=== PATIENT | female | born 1960 | race African-American/Black ===

== ENCOUNTER 2017-07-16 00:50 | Inpatient (IN) | payer MEDICAID ==
[~2017-07-16] VITALS: Ht 160 cm; Wt 64.5 kg
[2017-07-16 01:27] LABS: Basophils # (auto) 0 uL; Basophils % (auto) 1.4 % (0.0-2.0); Eosinophils # (auto) 0.2 uL; Hematocrit 38.7 % (36.0-46.0); Hemoglobin 12.6 g/dL (12.2-16.2); Lymphocytes # (auto) 1.7 uL; Lymphocytes % (auto) 51.3 % (10.0-50.0); Mean Corpuscular Hemoglobin 27.3 pg (28.0-32.0); Mean Corpuscular Hgb Conc. 32.4 g/dL (32.0-36.0); Mean Corpuscular Volume 84.3 fL (80.0-100.0); Mean Platelet Volume 8.4 fL (6.9-10.8); Monocytes # (auto) 0.3 uL; Monocytes % (auto) 9.7 % (0.0-12.0); Neutrophils # (auto) 1.1 uL; Neutrophils % (auto) 32.6 % (37.0-80.0); Nucleated Red Blood Cells % 0.1 %; Platelet Count (auto) 188 10^3/uL (140-450); Red Cell Distribution Width 13.9 % (11.8-14.3); White Blood Cell 3.3 10^3/uL (4.4-10.8)
[2017-07-16 01:40] LABS: INR 1.01 (0.9-1.15); Partial Thromboplastin Time 28.2 sec (22.64-33.71)
[2017-07-16 01:42] LABS: Albumin 3.6 g/dL (3.4-5.0); Anion Gap 8 (5-15); Aspartate Aminotransferase 21 U/L (15-37); BUN/Creatinine Ratio 14.9; Blood Urea Nitrogen 13 mg/dL (7-18); Calcium 9.5 mg/dL (8.5-10.1); Carbon Dioxide 28 mmol/L (21-32); Chloride 105 mmol/L (98-107); GFR African American 86 mL/min; GFR Non-African American 71 mL/min; Glucose 93 mg/dL (74-106); Magnesium 2.3 mg/dL (1.6-2.6); Potassium 3.6 mmol/L (3.5-5.1); Sodium 141 mmol/L (136-145)
[2017-07-16 01:47] LABS: Alkaline Phosphatase 91 U/L (45-117); Bilirubin, Total 0.2 mg/dL (0.2-1.0); Total Protein 7.3 g/dL (6.4-8.2)
[2017-07-16] MEDS ORDERED: ACETAMINOPHEN 325 MG TAB PO PRN (06:30)
[2017-07-16] MEDS ORDERED: ONDANSETRON HCL 4 MG/2 ML VIAL IV PRN (06:30)
[2017-07-16] MEDS ORDERED: TEMAZEPAM 15 MG CAP PO PRN (06:30)
[2017-07-16] MEDS ORDERED: HYDROmorphone HCL 2 MG/ML VL IV PRN (06:30)
[2017-07-16] MEDS ORDERED: NITROGLYCERIN 0.4 MG SL TAB SL PRN (06:30)
[2017-07-16] MEDS: ENOXAPARIN SOD 40 MG/0.4 ML SYRINGE SC SCH (09:32)
[2017-07-16] MEDS: FAMOTIDINE 20 MG TAB PO SCH ×2 (09:33→22:11)
[2017-07-16] MEDS ORDERED: ASPirin 81 mg TAB PO SCH (10:00)
[2017-07-16 12:17] LABS: Cholesterol 179 mg/dL (< 200); HDL Cholesterol 88 mg/dL (40-59); LDL Cholesterol 90 mg/dL (< 100); Triglycerides 89 mg/dL (< 150)
[2017-07-16 14:41] VITALS: BP 107/71
[2017-07-16] MEDS ORDERED: LEVO25TA6 PO (14:57)
[2017-07-16 20:00] VITALS: BP 101/59
[2017-07-16 22:00] VITALS: BP 101/59
[2017-07-16] MEDS ORDERED: ATORVASTATIN 20 MG TAB PO SCH (22:00)
[2017-07-17 05:06] LABS: Thyroxine (T4) 6.7 ug/dL (4.5-12.0)
[2017-07-17 05:18] VITALS: BP 96/49
[2017-07-17 05:40] LABS: Basophils # (auto) 0 uL; Basophils % (auto) 1.6 % (0.0-2.0); Eosinophils # (auto) 0.2 uL; Eosinophils % (auto) 6.1 % (0.0-7.0); Hematocrit 36.3 % (36.0-46.0); Hemoglobin 11.8 g/dL (12.2-16.2); Lymphocytes # (auto) 1.4 uL; Lymphocytes % (auto) 53.7 % (10.0-50.0); Mean Corpuscular Hemoglobin 27.3 pg (28.0-32.0); Mean Corpuscular Hgb Conc. 32.4 g/dL (32.0-36.0); Mean Corpuscular Volume 84.3 fL (80.0-100.0); Mean Platelet Volume 8.9 fL (6.9-10.8); Monocytes # (auto) 0.3 uL; Monocytes % (auto) 10.5 % (0.0-12.0); Neutrophils # (auto) 0.8 uL; Neutrophils % (auto) 28.1 % (37.0-80.0); Nucleated Red Blood Cells % 0.1 %; Platelet Count (auto) 172 10^3/uL (140-450); White Blood Cell 2.7 10^3/uL (4.4-10.8)
[2017-07-17 06:08] LABS: Albumin 3.3 g/dL (3.4-5.0); Calcium 9.2 mg/dL (8.5-10.1)
[2017-07-17 06:11] LABS: BUN/Creatinine Ratio 12.8
[2017-07-17 06:13] LABS: Bilirubin, Total 0.3 mg/dL (0.2-1.0); Total Protein 6.8 g/dL (6.4-8.2)
[2017-07-17] MEDS ORDERED: LEVOTHYROXINE SODIUM 50 MCG TAB PO SCH (06:45)
[2017-07-17 08:50] VITALS: BP 113/76
[2017-07-17] MEDS ORDERED: ADENOSINE 54 MG in GIVE UN-DILUTED 0 ML IV ONE (09:30)
[2017-07-17 09:36] VITALS: BP 138/92
[2017-07-17] MEDS ORDERED: ASPirin 81 mg TAB PO SCH (10:00)
[2017-07-17] MEDS: ENOXAPARIN SOD 40 MG/0.4 ML SYRINGE SC SCH (10:48)
[2017-07-17] MEDS: FAMOTIDINE 20 MG TAB PO SCH (10:48)
[2017-07-17 13:18] VITALS: BP 115/77
[2017-07-17 16:14] VITALS: BP 115/77
== END 2017-07-17 16:40 | disposition home or self-care (01) | DRG 203 ==
LOC: ER 00:52 → TELE 00:53 → TELE-CENTR 15:16
PROVIDERS: ADMIT Nurse Practitioner; ATTEND Internal Medicine
DX: R07.89 Other chest pain (principal); I95.9 Hypotension, unspecified; M41.9 Scoliosis, unspecified; E03.9 Hypothyroidism, unspecified; Z90.710 Acquired absence of both cervix and uterus; Z79.82 Long term (current) use of aspirin; Z79.899 Other long term (current) drug therapy; Z88.5 Allergy status to narcotic agent; Z91.013 Allergy to seafood; Z92.3 Personal history of irradiation; Z82.49 Family history of ischemic heart disease and other diseases of the circulatory system
CPT/HCPCS: 36415; 71010; 78452; 80053; 80061; 83735; 84443; 84484; 85025; 85379; 85610; 85730; 93005; 93017; 93306; 96372; J0153

== ENCOUNTER 2017-11-02 17:56 | Emergency (ER) | payer MEDICAID ==
[~2017-11-02] VITALS: Ht 157.5 cm; Wt 62.1 kg
[2017-11-02 18:33] LABS: Urine Bacteria NONE SEEN /hpf (None Seen); Urine Blood Negative /uL (Negative); Urine Mucus FEW (None Seen); Urine Specific Gravity 1.017 (1.001-1.035); Urine WBC 1 /hpf (0 - 5)
[2017-11-02 18:45] LABS: Basophils # (auto) 0.1 uL; Eosinophils # (auto) 0.1 uL; Eosinophils % (auto) 4.7 % (0.0-7.0); Hematocrit 38.8 % (36.0-46.0); Hemoglobin 12.5 g/dL (12.2-16.2); Lymphocytes # (auto) 1.5 uL; Lymphocytes % (auto) 50.7 % (10.0-50.0); Mean Corpuscular Hemoglobin 27.1 pg (28.0-32.0); Mean Corpuscular Hgb Conc. 32.1 g/dL (32.0-36.0); Mean Corpuscular Volume 84.3 fL (80.0-100.0); Monocytes # (auto) 0.2 uL; Neutrophils # (auto) 1.1 uL; Neutrophils % (auto) 34.6 % (37.0-80.0); Nucleated Red Blood Cells % 0.2 %; Platelet Count (auto) 244 10^3/uL (140-450); Red Cell Distribution Width 14.2 % (11.8-14.3)
[2017-11-02 19:03] LABS: BUN/Creatinine Ratio 8.9; Bilirubin, Total 0.3 mg/dL (0.2-1.0); Calcium 9.4 mg/dL (8.5-10.1); Potassium 3.4 mmol/L (3.5-5.1); Total Protein 8.1 g/dL (6.4-8.2)
[2017-11-02] MEDS ORDERED: HYDROcodone-ACET 5/325MG TAB PO ONE (23:30)
[2017-11-03 01:30] VITALS: BP 141/81
== END 2017-11-03 01:45 | disposition home or self-care (01) ==
LOC: ER 17:56
DX: M54.41 Lumbago with sciatica, right side (principal); M41.86 Other forms of scoliosis, lumbar region; R10.31 Right lower quadrant pain; Z90.710 Acquired absence of both cervix and uterus; Z91.013 Allergy to seafood; Z88.6 Allergy status to analgesic agent
CPT/HCPCS: 36415; 73502; 74176; 80053; 81001; 82150; 83690; 85025

== ENCOUNTER → 2017-11-02 | Emergency (ER) | payer MEDICAID ==
[~2017-11-02] MED LIST: LEVO25TA6 PO
== END | disposition left against medical advice (07) ==
LOC: ER 14:45
DX: R10.9 Unspecified abdominal pain (principal); Z53.21 Procedure and treatment not carried out due to patient leaving prior to being seen by health care provider